=== PATIENT | female | born 1995 | race African-American/Black ===

== ENCOUNTER 2017-10-24 17:50 | Emergency (ER) | payer OTHER ==
--- NOTE | 2017-10-24 18:02 | PDOC ---
History of Present Illness - General Chief Complaint: Pain Stated Complaint: 11 WEEKS ABD PAIN Time Seen by Provider: 10/24/17 17:55 - History of Present Illness Initial Comments: 10/24/17 18:19 The patient is a 22 year old female 11 weeks who presents for evaluation of nausea, vomiting, headache, chest pain, and abdominal pain. The patient reports daily nausea and multiple episodes of non-bilious, non-bloody vomiting since 09/12/17 with inability to tolerate PO intake. The patient reports throbbing headache today along with intermittent crampy generalized abdominal pain and chest tightness. She initially presented to her certified appliance service technician physician who recommended that the patient present to the ER for further evaluation. The patient's LMP was 08/07/17 per report. The patient states that she currently does not have abdominal pain and her major complaint is nausea and vomiting. The patient otherwise denies fevers, chills, SOB, vaginal bleeding, vaginal discharge, or changes with urination or bowel movements. Past History - Past Medical History Allergies/Adverse Reactions: Allergies Allergy/AdvReac Type Severity Reaction Status Date / Time No Known Allergies Allergy Verified 10/24/17 18:03 Home Medications: Ambulatory Orders No Home Medications 0 dose .ROUTE UTDICT 11/29/12 Metoclopramide HCl [Reglan] 5 mg PO QID #20 tablet 10/24/17 - Reproductive History (#): 3 Para: 1 Therapeutic (s) & number: No Spontaneous : 1 - Suicide/Smoking/Psychosocial Hx Smoking Status: No Smoking History: Never smoked Number of Cigarettes Smoked Daily: 0 Review of Systems - Review of Systems Comments:: 10/24/17 18:23 Constitutional: No fevers, chills, fatigue, malaise HEENT: No Rhinorrhea, nasal congestion, visual changes Cardiovascular: Chest Tightness. Lightheadedness. No syncope, palpitations Respiratory: No Cough, SOB, Hemoptysis, Gastrointestinal: Abdominal pain, nausea, vomiting. No Constipation, Diarrhea, Melena Genitourinary: No Dysuria, Frequency, Urgency, Hesitancy, Hematuria, Flank pain , Vaginal bleeding, Vaginal discharge Musculoskeletal: No Myalgia, arthralgia Skin: No rashes, itching, bruising, pallor Neurologic: Headache. No Dizziness, Numbness, Weakness, or Tingling Psychiatric: No Hallucinations. No SI or HI *Physical Exam - Physical Exam Comments: 10/24/17 18:42 General Appearance: Nourished. No Apparent Distress HEENT: EOMI, JEAN CARLOS. No Pharyngeal Erythema, Tonsillar Exudate, Tonsillar Erythema Neck: No Cervical Lymphadenopathy Respiratory/Chest: Lungs Clear, Normal Breath Sounds. No Crackles, Rales, Rhonchi, Wheezing Cardiovascular: Regular Rhythm, Tachycardic. No Murmur, Gallops, Rubs Gastrointestinal/Abdominal: Normal Bowel Sounds, Soft. No Guarding, Rebound, Tenderness Musculoskeletal: No CVA Tenderness Extremity: Normal Capillary Refill Integumentary: Normal Color, Dry, Warm Neurologic: volunteer services supervisor II-XII NML intact, Fully Oriented, Alert, Normal Mood/Affect, Normal Response, Motor Strength 5/5. Normal Finger to Nose and Heel to [place] ED Treatment Course - LABORATORY CBC & Chemistry Diagram: 10/24/17 19:19 10/24/17 19:19 Medical Decision Making - Medical Decision Making 10/24/17 18:43 The patient is a 22 year old female 11 weeks who presents for evaluation of nausea, vomiting, headache, chest pain, and abdominal pain. Differential includes but is not limited to: Hyperemasis Gravidum, Gastroenteritis, Migraine Headache, Infectious, Metabolic Derangement. Given the patient's history, it is likely the patient's symptoms are due to hyperemasis gravidum. However we will obtain a cbc, cmp, troponin, ekg, beta- hcg, ua, urine culture, and transvaginal US to evaluate further for possible etiologies. We will treat in the meantime with iv fluids, reglan, and iv tylenol. We will continue to monitor and reassess. 10/24/17 19:32 Patient signed out to Dr. Saldivar pending lab results and US results and reassessment. *DC/Admit/Observation/Transfer Diagnosis at time of Disposition: Hyperemesis arising during - Discharge Dispostion Disposition: HOME Condition at time of disposition: Stable - Prescriptions Prescriptions: Metoclopramide HCl [Reglan] 5 mg PO QID #20 tablet - Referrals Referrals: Pam Mendoza [Primary Care Provider] - - Patient Instructions Printed Discharge Instructions: DI for Hyperemesis Gravidarum, DI for Morning Sickness Additional Instructions: You were seen here for your nausea and vomiting. Your labs were unremarkable and your HCG level in your blood was appropriate for your baby Your ultrasound showed the baby is appropriate age for 11-12 weeks . Please follow-up with your MILITARY PROFESSIONAL within the next week. If you develop any worsening abdominal pain, spotting or other bleeding, please return to the ER for further evaluation. - Post Discharge Activity
[2017-10-24] MEDS ORDERED: SODIUM CHLORIDE 1,000 ML IV STA (18:03)
[2017-10-24 18:06] VITALS: TEMP 98; BMI 17.6
[2017-10-24] MEDS ORDERED: METOCLOPRAMIDE HCL INJECTION 10 MG/2 ML VIAL IVPB ONE (18:08)
[2017-10-24] MEDS ORDERED: ACETAMINOPHEN 1000 MG/100 ML VIAL (NON FORMULARY) IVPB ONE (18:16)
--- NOTE | 2017-10-24 18:59 | PDOC ---
Attending Attestation - Resident Resident Name: LucíaBryanUmberto - ED Attending Attestation I have performed the following: I have examined & evaluated the patient, The case was reviewed & discussed with the resident, I agree w/resident's findings & plan, Exceptions are as noted - HPI HPI: 10/24/17 18:57 22 yo who is approx 11 weeks preg. LMP 08/07/17 C/O N,V Saw herob/data analytics specialist wo referred her to ER for IV fluids - Physicial Exam PE: 10/24/17 18:59 head ncat neck supple lungs cta b/l wnwd 22 yo p/w nausea and vomiting,no vag bleeding cvs [id number] abd no rebound,no guarding neuro axox3 - Medical Decision Making 10/24/17 19:02 plan chemistries to check electrolytes,IVF,antiemetics.pelvic US 10/24/17 22:47 labs reviewed, pt s' symptoms resolved after IVF,antiemetics. PELVIC US revealed sl iup 12 weeks ,good FHT 10/25/17 00:24
[2017-10-24] MEDS ORDERED: ACETAMINOPHEN INJECTION 100 ML IVPB ONE (19:32)
[2017-10-24] MEDS ORDERED: METOCLOPRAMIDE HCL INJECTION 10 MG/2 ML VIAL ONE (19:32)
--- NOTE | 2017-10-24 19:39 | PDOC ---
*Physical Exam - Vital Signs Last Vital Signs Temp Pulse Resp BP Pulse Ox 98 F 88 16 97/64 99 10/24/17 17:50 10/24/17 21:06 10/24/17 21:06 10/24/17 21:06 10/24/17 21:06 <PerezRadha Diamond - Last Filed: 10/24/17 22:35> - Vital Signs Last Vital Signs Temp Pulse Resp BP Pulse Ox 98 F 111 H 16 90/60 100 10/24/17 17:50 10/24/17 17:50 10/24/17 17:50 10/24/17 17:50 10/24/17 17:50 - Physical Exam Comments: 10/24/17 19:38 22yo F female 11 weeks with presenation of nausea, episodes of vomiting, and generalized abdominal pain without spotting. Labs pending. Pt receiving NS 1L bolus, ofirmev, and reglan for nausea. Pt currently has no other complaints at this time. Goal will be able to tolerate PO and will reassess as needed. <Korey Saldivar - Last Filed: 10/24/17 22:37> ED Treatment Course - LABORATORY CBC & Chemistry Diagram: 10/24/17 19:19 10/24/17 19:19 - ADDITIONAL ORDERS Additional order review: Laboratory Results 10/24/17 10/24/17 19:19 19:19 Sodium 136 Potassium 3.4 L Chloride 104 Carbon Dioxide 24 Anion Gap 8 BUN 9 Creatinine 0.4 L Creat Clearance w eGFR > 60 Random Glucose 79 Calcium 9.5 Total Bilirubin 0.9 AST 21 ALT 31 Alkaline Phosphatase 45 Creatine Kinase 80 Troponin I < 0.02 Total Protein 8.0 Albumin 4.4 Beta HCG, Quant 74369.4 10/24/17 19:19 RBC 4.72 D MCV 82.5 MCHC 33.4 RDW 14.7 MPV 8.0 Neutrophils % 76.9 D Lymphocytes % 16.5 D Monocytes % 6.0 Eosinophils % 0.1 D Basophils % 0.5 - Medications Given in the ED: ED Medications Discontinued Medications Generic Name Dose Route Start Last Admin Trade Name Freq PRN Reason Stop Dose Admin Acetaminophen 1,000 mg 10/24/17 18:16 10/24/17 19:44 Ofirmev Injection - IVPB 10/24/17 18:17 1,000 mg ONCE ONE Administration Sodium Chloride 1,000 mls @ 1,000 mls/hr 10/24/17 18:03 10/24/17 19:30 Normal Saline - IV 10/24/17 19:02 1,000 mls/hr ASDIR STA Administration Metoclopramide HCl 10 mg 10/24/17 18:08 10/24/17 19:45 Reglan Injection - IVPB 10/24/17 18:09 10 mg ONCE ONE Administration <Radha Todd - Last Filed: 10/24/17 22:35> - LABORATORY CBC & Chemistry Diagram: 10/24/17 19:19 10/24/17 19:19 <Korey Saldivar - Last Filed: 10/24/17 22:37> Medical Decision Making - Medical Decision Making 10/24/17 19:55 CBC unremarkable currently;CMP pending 10/24/17 20:25 On reassessment pt is sleeping without any vomiting. Denies any new complaints. CMP with slight hypokalemia at 3.4; cardiac profile unremarkable --Will replete with next fluids 10/24/17 22:17 Transvaginal US showing appropriate age PO trial with water and if tolerated can be discharged home 10/24/17 22:24 Tolerating water; can be discharged with close follow-up <Korey Saldivar - Last Filed: 10/24/17 22:37> *DC/Admit/Observation/Transfer <Radha Todd - Last Filed: 10/24/17 22:35> - Discharge Dispostion Admit: No <Korey Saldivar - Last Filed: 10/24/17 22:37> Diagnosis at time of Disposition: Hyperemesis arising during - Discharge Dispostion Disposition: HOME Condition at time of disposition: Stable - Prescriptions Prescriptions: Metoclopramide HCl [Reglan] 5 mg PO QID #20 tablet - Referrals Referrals: Pam Mendoza [Primary Care Provider] - - Patient Instructions Printed Discharge Instructions: DI for Hyperemesis Gravidarum, DI for Morning Sickness Additional Instructions: You were seen here for your nausea and vomiting. Your labs were unremarkable and your HCG level in your blood was appropriate for your baby Your ultrasound showed the baby is appropriate age for 11-12 weeks . Please follow-up with your INTELLIGENCE RESEARCH SPECIALIST within the next week. If you develop any worsening abdominal pain, spotting or other bleeding, please return to the ER for further evaluation. - Post Discharge Activity
[2017-10-24 19:43] LABS: BASO % 0.5 % (0-2.0); EOS % 0.1 % (0-4.5); LYMPH % 16.5 % (8-40); MCH 27.6 pg (25.7-33.7); MCHC 33.4 g/dl (32.0-36.0); MEAN CELL VOLUME 82.5 fl (80-96); NEUT % 76.9 % (42.8-82.8); PLATELET COUNT 231 K/MM3 (134-434); RBC 4.72 M/mm3 (3.60-5.2); RDW 14.7 % (11.6-15.6)
[2017-10-24 20:13] LABS: ALBUMIN 4.4 g/dl (3.4-5.0); ANION GAP 8 (8-16); BILIRUBIN,TOTAL 0.9 mg/dL (0.2-1.0); BLOOD UREA NITROGEN 9 mg/dL (7-18); CALCIUM 9.5 mg/dL (8.5-10.1); CHLORIDE 104 mmol/L (98-107); CO2 24 mmol/L (21-32); CREATININE 0.4 mg/dL (0.55-1.02); GLUCOSE,RANDOM 79 mg/dL (74-106); POTASSIUM 3.4 mmol/L (3.5-5.1); SGOT/AST 21 U/L (15-37); SGPT/ALT 31 U/L (12-78); SODIUM 136 mmol/L (136-145)
[2017-10-24 20:15] LABS: ALK PHOS 45 U/L (45-117)
[2017-10-24 21:08] VITALS: BP 97/64; PULSE 88
--- NOTE | 2017-10-25 09:54 | EKG ---
Test Reason : Blood Pressure : / mmHG Vent. Rate : 112 BPM Atrial Rate : 112 BPM P-R Int : 126 ms QRS Dur : 090 ms QT Int : 342 ms P-R-T Axes : 074 090 -48 degrees QTc Int : 466 ms SINUS TACHYCARDIA RIGHTWARD AXIS ABNORMAL ECG NO PREVIOUS ECGS AVAILABLE Confirmed by SANTHOSH YAO, PAUL ([id number]) on 10/25/2017 9:53:48 AM Referred By: Confirmed By:PAUL TREVIZO MD
== END 2017-10-24 22:48 | disposition home or self-care (01) ==
LOC: JER 17:50
PROC: 3E033NZ Introduction of Analgesics, Hypnotics, Sedatives into Peripheral Vein, Percutaneous Approach (ICD-10-PCS; principal; 2017-10-24)
PROC: 3E033GC Introduction of Other Therapeutic Substance into Peripheral Vein, Percutaneous Approach (ICD-10-PCS; 2017-10-24)
PROC: 3E0337Z Introduction of Electrolytic and Water Balance Substance into Peripheral Vein, Percutaneous Approach (ICD-10-PCS; 2017-10-24)
DX: O26.891 Other specified pregnancy related conditions, first trimester (principal); Z3A.11 11 weeks gestation of pregnancy; R11.10 Vomiting, unspecified
CPT/HCPCS: 36415; 76817-TC; 80053; 82550; 84484; 84702; 85025; 93005; 93010; 96361; 96374; 96375; 99283-25; J0131; J7030

== ENCOUNTER 2018-05-12 05:25 | Inpatient (IN) | payer OTHER ==
[2018-05-12] MEDS ORDERED: ELECTROLYTE-148 SOLN 500 ML IV ONE (06:18)
[2018-05-12] MEDS ORDERED: CITRIC ACID/SODIUM CITRATE 30 ML UNIT-DOSE CUP PO ONE (06:18)
--- NOTE | 2018-05-12 06:26 | HP ---
Past Medical History - Primary Care Physician PCP:: Juana Self - Admission Chief Complaint: 22 yrs 40.4 weeks, previous c/section ,onset LP since 9.00PM 05/11/18, pt requests for Repeat c/section History of Present Illness: pnc at [address] [place] [address]. 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 Weeks Gestation by Dates: 40.4 ...EDC by Dates: 05/08/18 ...EDC by Sono: 05/08/18 Heme/Onc: No: Anemia, Sickle Cell Disease, Sickle Cell Trait Infectious Disease: No: AIDS, C-Diff, Herpes Zoster, HIV, MRSA, STD's, Tuberculosis, VREF, Other Psych: No: Addictions, Anxiety, Bipolar, Depression, Panic, Psychosis, Schizophrenia, Other Endocrine: No: Diabetes Mellitus, Hyperthyroidism, Hypothyroidism - Past Surgical History Past Surgical History: Yes: (12/30/2010 [facility]) Hx Myomectomy: No Hx Transabdominal Cerclage: No - Smoking History Smoking history: Never smoked Have you smoked in the past 12 months: No Aproximately how many cigarettes per day: 0 - Alcohol/Substance Use Hx Alcohol Use: No History of Substance Use: reports: None Home Medications - Allergies Allergies/Adverse Reactions: Allergies Allergy/AdvReac Type Severity Reaction Status Date / Time No Known Allergies Allergy Verified 05/12/18 06:05 - Home Medications Home Medications: Ambulatory Orders Ferrous Sulfate [Feosol] 325 mg PO DAILY 05/12/18 Vit 108/Iron/Folic AC [ One Tablet] 1 each PO DAILY 05/12/18 Physical Exam - Maternity Vital Signs: Vital Signs Temperature 97.8 F 05/12/18 06:08 Pulse Rate 81 05/12/18 06:08 Respiratory Rate 20 05/12/18 06:08 Blood Pressure 134/75 05/12/18 06:08 O2 Sat by Pulse Oximetry (%) Selected Entries 05/12/18 06:39 Weight 172 lb Constitutional: Yes: Well Nourished, Moderate Distress Eyes: Yes: WNL HENT: Yes: WNL, Normocephalic Neck: Yes: WNL Cardiovascular: Yes: WNL, Regular Rate and Rhythm Lungs: Clear to auscultation Breast(s): Yes: WNL. No: Mass - Abdominal Exam/OB Fundal Height: 40 Number of Fetuses: Single Presentation: Vertex Contractions: Yes Regularity: Irregular Intensity: Mod/Strong (3-5 min) Monitor Mode: External Heart Rate (range): 130 Heart Rate Location: [facility] Category: I Accelerations: Uniform Decelerations: None - Vaginal Exam/OB Vaginal Bleediing: Bloody Show Speculum Exam: No Dilatation (cm): FT Effacement (%): 80 Amniotic Membrane Status: Intact Presentation: Vertex/Position (cx is post erior) Station: -3 - Physical Exam Musculoskeletal: Yes: WNL Extremities: Yes: WNL. No: Calf Tenderness Edema: LLE: 1+, RLE: 1+ Integumentary: Yes: Incision (old pfannensteil scar), Tattoos Deep Tendon Reflex Grade: Normal +2 ...Motor Strength: WNL Psychiatric: Yes: WNL - Labs Lab Results: Laboratory Tests 05/12/18 06:00 PT with INR 11.20 INR 0.95 Laboratory Tests 05/12/18 05/12/18 05/12/18 06:00 06:00 06:00 WBC 7.7 Hgb 13.2 Hct 41.8 Plt Count 147 D PT with INR 11.20 INR 0.95 PTT (Actin FS) 28.4 Sodium 138 Potassium 3.9 Chloride 107 Carbon Dioxide 21 BUN 7 Creatinine 0.4 L Random Glucose 84 Problem List - Problems (1) Post term over 40 weeks Code(s): O48.0 - POST-TERM (2) Previous section Code(s): Z98.891 - HISTORY OF UTERINE SCAR FROM PREVIOUS SURGERY (3) Labor established Code(s): GAO8056 - Assessment/Plan 22 yrs , previous c/section, in early labor, postterm pregn 40.4 weeks , refuses , requests for Repeat c/section Plan delivery by repeat LFTC/section
[2018-05-12] MEDS ORDERED: ELECTROLYTE-148 SOLN 1,000 ML IV SCH (06:30)
[2018-05-12] MEDS ORDERED: ONDANSETRON 4 MG/2 ML VIAL ONE (06:33)
[2018-05-12] MEDS ORDERED: SODIUM CHLORIDE 0.9% P/F 10 ML VIAL IJ ONE (06:33)
[2018-05-12] MEDS ORDERED: ceFAZolin SODIUM 1 GM VIAL ONE ×2 (06:33→14:23)
[2018-05-12 06:45] VITALS: BMI 33.5
[2018-05-12 06:50] LABS: INR 0.95 (0.83-1.09); PROTHROMBIN TIME (PATIENT) 11.2 SEC (9.7-13.0)
[2018-05-12 06:52] LABS: ACTIVATED PTT 28.4 SECONDS (25.2-36.5); ANION GAP 10 MMOL/L (8-16); BLOOD UREA NITROGEN 7 mg/dL (7-18); CALCIUM 8.8 mg/dL (8.5-10.1); CHLORIDE 107 mmol/L (98-107); CO2 21 mmol/L (21-32); CREATININE 0.4 mg/dL (0.55-1.3); GLUCOSE,RANDOM 84 mg/dL (74-106); POTASSIUM 3.9 mmol/L (3.5-5.1); SODIUM 138 mmol/L (136-145)
[2018-05-12] MEDS ORDERED: METOCLOPRAMIDE HCL INJECTION 10 MG/2 ML VIAL ONE (06:52)
[2018-05-12] MEDS ORDERED: morphine SULFATE/Preservative Free 0.5 MG/ML (1cc Syringe) ONE (06:57)
[2018-05-12] MEDS ORDERED: OXYTOCIN 20 UNITS in 0.9% NS 20 UNIT/1,000 ML INFUS.BAG IV ONE ×2 (07:07→09:17)
[2018-05-12 07:18] LABS: BASO % 0.4 % (0-2.0); EOS % 0.8 % (0-4.5); HEMATOCRIT 41.8 % (32.4-45.2); HEMOGLOBIN 13.2 GM/dL (10.7-15.3); LYMPH % 22.6 % (8-40); MCH 26.3 pg (25.7-33.7); MCHC 31.7 g/dl (32.0-36.0); MEAN PLT VOLUME 9.3 fl (7.5-11.1); MONO % 8.6 % (3.8-10.2); NEUT % 67.6 % (42.8-82.8); PLATELET COUNT 147 K/MM3 (134-434); RBC 5.03 M/mm3 (3.60-5.2); RDW 13.9 % (11.6-15.6); WHITE BLOOD COUNT 7.7 K/mm3 (4.0-10.0)
[2018-05-12] MEDS ORDERED: morphine SULFATE/Preservative Free 0.5 MG/ML (1cc Syringe) SPIN ONE (08:11)
[2018-05-12] MEDS ORDERED: ONDANSETRON 4 MG/2 ML VIAL IVPUSH PRN (08:11)
[2018-05-12] MEDS ORDERED: ACETAMINOPHEN 325 MG TABLET (FP) PO PRN (08:11)
[2018-05-12 08:22] LABS: ARTERIAL BLD GAS O2 SATURATION 5.4 % (90-98.9); ARTERIAL BLOOD GAS BASE EXCESS -1.8 meq/l (-2-2); ARTERIAL BLOOD GAS PCO2 66.6 mmHg (35-45); ARTERIAL BLOOD GAS PO2 9.9 mmHg (80-100); ARTERIAL BLOOD GAS pH 7.24 (7.35-7.45)
[2018-05-12 08:24] LABS: VENOUS PH 7.29 (7.32-7.42); VENOUS PO2 22.3 mmHg (28-48)
--- NOTE | 2018-05-12 08:47 | PN ---
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
[2018-05-12] MEDS ORDERED: SENNOSIDES/DOCUSATE COMBO (SENNA PLUS) TABLET (UD) PO PRN (08:49)
[2018-05-12] MEDS ORDERED: METHYLERGONOVINE MALEATE 0.2 MG/1 ML AMP IM PRN (08:49)
[2018-05-12] MEDS: OXYTOCIN 20 UNITS in 0.9% NS 20 UNIT/1,000 ML INFUS.BAG IV SCH ×2 (09:19→18:16)
--- NOTE | 2018-05-12 09:34 | OP ---
DATE OF OPERATION: 05/12/2018 PREOPERATIVE DIAGNOSIS: At 40.4 weeks, previous section in labor, request for repeat section. OPERATION: Repeat low transverse section. SURGEON: Juana Self MD ASST SURGEON Drew CEBALLOS ANESTHESIA: Dr. Burgess, spinal. MESSENGER FLOORPERSON Dr Jasmin Riojas FINDINGS: This is a 22-year-old 3, para 1-0-1-1 who had onset of labor since 9 p.m. on May 11. She was fingertip dilated, posterior, 80% effaced, -3 station woodrow i 3- 5 minutes irregularity moderate contractions, but she refuses and requests for repeat section. DESCRIPTION OF PROCEDURE: Abdominal prep was done, and Blackmon catheter was placed. SCDs were applied. She was taken to the operating room table. Spinal anesthesia was given. She was placed in supine position. Pfannenstiel incision was made through previous scar in the skin and subcutaneous tissue. Scar tissue anterior rectus sheath was incised transversely. Bleeding points were clamped and cauterized. Rectus muscle was from the rectus sheath. Then peritoneal peritoneum was opened vertically. The lower flap by the peritoneum was incised transversely. Lower uterine segment was isolated and lower uterine segment was incised transversely. Amniotic fluid was clear. Baby was delivered at 7:53 a.m. Baby boy from LOT position. Cord around the neck, which was untangled. Baby's cord was clamped, cut. Immediate oral and nasal suction was done. Baby's weight is 8 pounds 3 ounces. score 9, 9. Dr. Beulah Castellanos, ethics instructor, was present in the room. Cord blood was collected. Cord blood gases were also collected. Placenta was removed completely with the membranes. Uterine cavity was cleaned, and the uterine incision was closed with 2 layers. First layer was a continuous locking with a Biosyn single suture. Second layer was a continuous intermittently locking with a Biosyn single suture. Hemostasis was verified. Bladder peritoneum was closed with a Biosyn single suture. There were omental adhesions between the right side of the abdominal wall and the mentum, which were clamped, cut, cauterized, and ligated with 0 Vicryl. Irrigation was done. Sponge, instrument, and needle count was correct. Both the tubes and ovaries were normal. Closure of the abdomen was done. Parietal peritoneum was closed with an 0 Vicryl suture. Then muscles were approximated together with interrupted sutures under the rectus sheath. Hemostasis was checked, and anterior rectus sheath was closed with Vicryl 0 continuous suture. Hemostasis was verified in the subcutaneous tissues. Skin was mobilized from underneath the scar. Subcutaneous tissue was approximated with interrupted Biosyn single suture then the skin was approximated with mick. Pressure dressing was given. Blood clots were removed from the vagina. The patient tolerated the procedure well. She was transferred to the recovery room in stable condition. Estimated blood loss was 600 mL. Urine output was 100 mL intraoperatively. She received 1 g of IV Ancef prior to the incision. Jean Paul [id number] MTDD
[2018-05-12] MEDS: IBUPROFEN 800 MG/8 ML IJ IVPB PRN ×2 (11:03→20:51)
[2018-05-12] MEDS ORDERED: DEXTROSE 5%-WATER - 50 ML IVPB ONE (14:23)
[2018-05-12] MEDS: CEFAZOLIN 1 GM in DEXTROSE 5%-WATER - 50 ML IVPB SCH ×2 (14:31→23:15)
[2018-05-13] MEDS ORDERED: DEXTROSE 5%-WATER - 50 ML IVPB ONE ×2 (00:08→05:19)
[2018-05-13] MEDS ORDERED: ceFAZolin SODIUM 1 GM VIAL ONE ×2 (00:08→05:19)
[2018-05-13] MEDS: ACETAMINOPHEN 325 MG TABLET (FP) PO PRN ×3 (03:09→23:54)
[2018-05-13] MEDS: SIMETHICONE 80 MG TAB.CHEW (FP) PO PRN ×4 (03:09→23:55)
[2018-05-13] MEDS: IBUPROFEN 600 MG TABLET (FP) PO PRN ×4 (03:10→23:54)
[2018-05-13] MEDS ORDERED: oxyCODONE HCL 5 MG TABLET PO PRN (06:00)
[2018-05-13] MEDS: CEFAZOLIN 1 GM in DEXTROSE 5%-WATER - 50 ML IVPB SCH (06:02)
[2018-05-13] MEDS: oxyCODONE HCL 5 MG TABLET PO PRN ×3 (08:17→18:21)
[2018-05-13 08:18] LABS: BASO % 0.4 % (0-2.0); EOS % 0.7 % (0-4.5); HEMATOCRIT 36.7 % (32.4-45.2); HEMOGLOBIN 11.9 GM/dL (10.7-15.3); LYMPH % 16.1 % (8-40); MCH 27.3 pg (25.7-33.7); MCHC 32.4 g/dl (32.0-36.0); MEAN CELL VOLUME 84.4 fl (80-96); MEAN PLT VOLUME 9.7 fl (7.5-11.1); MONO % 7.7 % (3.8-10.2); NEUT % 75.1 % (42.8-82.8); PLATELET COUNT 136 K/MM3 (134-434); RBC 4.35 M/mm3 (3.60-5.2); RDW 13.7 % (11.6-15.6); WHITE BLOOD COUNT 8.4 K/mm3 (4.0-10.0)
[2018-05-13] MEDS ORDERED: BISACODYL 10 MG SUPP.RECT RC PRN (08:49)
--- NOTE | 2018-05-13 08:52 | PN ---
Progress Note (short form) - Note Progress Note: ANESTHESIOLOGY POST-OP CHECK 22F s/p repeat under spinal anesthesia POD #1. No acute complaints. Denies N/V, backache, headache. Pain 7/10 & tolerable, ambulating, tolerating PO. Vital Signs Temperature 98 F 05/13/18 06:00 Pulse Rate 80 05/13/18 06:00 Respiratory Rate 18 05/13/18 06:00 Blood Pressure 106/54 L 05/13/18 06:00 O2 Sat by Pulse Oximetry (%) 100 05/12/18 21:00 Active Medications Acetaminophen (Tylenol -) 650 mg PO Q4H PRN PRN Reason: PAIN LEVEL 1-5 Last Admin: 05/13/18 03:09 Dose: 650 mg Bisacodyl (Dulcolax Suppository -) 10 mg RC PRN PRN PRN Reason: CONSTIPATION Diphenhydramine HCl (Benadryl Injection -) 25 mg IVPUSH Q4H PRN PRN Reason: Pruritis Enoxaparin Sodium (Lovenox -) 40 mg SQ DAILY [facility] Ferrous Sulfate (Feosol -) 325 mg PO BID [facility] Parenteral Electrolytes (Plasma-Lyte 148 -) 1,000 mls @ 125 mls/hr IV ASDIR [facility] Cefazolin Sodium 1 gm/ (Dextrose) 50 mls @ 100 mls/hr IVPB Q8H [facility] Stop: 05/13/18 14:59 Last Admin: 05/13/18 06:02 Dose: 100 mls/hr Oxytocin/Sodium Chloride (Normal Saline+20 Units Oxytocin -) 20 unit in 1,000 mls @ 125 mls/hr IV ASDIR [facility] Last Admin: 05/12/18 18:16 Dose: 125 mls/hr Ibuprofen (Motrin -) 600 mg PO Q4H PRN PRN Reason: PAIN LEVEL 1 - 3 Last Admin: 05/13/18 08:18 Dose: 600 mg Ibuprofen (Caldolor Injection -) 800 mg IVPB Q8H PRN PRN Reason: PAIN LEVEL 1-5 Last Admin: 05/12/18 20:51 Dose: 800 mg Methylergonovine Maleate (Methergine Injection -) 0.2 mg IM Q4H PRN PRN Reason: Excessive Bleeding (L&D) Ondansetron HCl (Zofran Injection) 4 mg IVPUSH Q4H PRN PRN Reason: NAUSEA Oxycodone HCl (Roxicodone -) 5 mg PO Q4H PRN PRN Reason: PAIN LEVEL 4 - 6 Last Admin: 05/13/18 08:17 Dose: 5 mg Oxycodone HCl (Roxicodone -) 10 mg PO Q4H PRN PRN Reason: PAIN LEVEL 7 - 10 Multivit/Folic Acid/Iron ( Vitamins (Sjr) -) 1 tab PO DAILY [facility] Senna/Docusate Sodium (Pericolace -) 2 tablet PO HS PRN PRN Reason: CONSTIPATION Simethicone (Mylicon -) 80 mg PO Q4H PRN PRN Reason: GAS Last Admin: 05/13/18 08:19 Dose: 80 mg Gen: Awake, alert No apparent anesthesia complications. Pain controlled. Continue management as per primary team.
[2018-05-13] MEDS: ENOXAPARIN NA (PORCINE) 40 MG/0.4 ML DISP.SYRIN SQ SCH (09:28)
[2018-05-13] MEDS: PRENATAL VITAMINS W/ FOLIC ACID TABLET (FP) PO SCH (10:00)
--- NOTE | 2018-05-13 10:10 | PN ---
Post Progress Note - Subjective Subjective: c/o pain on rt side of incision max scale 5/10 voided after rodriguez was taken out Post Day: 1 Type of Delivery: Repeat C/S Vital Signs: Vital Signs Temperature 98.3 F 05/13/18 07:40 Pulse Rate 84 05/13/18 07:40 Respiratory Rate 18 05/13/18 08:00 Blood Pressure 137/75 05/13/18 07:40 O2 Sat by Pulse Oximetry (%) 100 05/12/18 21:00 Breast Exam: Yes: Soft, Other (BF ). No: Engorged Uterus: Yes: Fundus Firm, Fundus below umbilicus, Non-tender Incision: Yes: Dressing dry and intact. No: Redness, Oozing Abdomen/GI: Yes: Abdomen soft (bs active ), Passing flatus, Tolerating PO (diet) . No: Abdominal Distention Lochia: Yes: Rubra Lochia, amount: Moderate Extremities: Yes: Calves non-tender Perineum: Yes: Intact Activity: Ambulating - Labs Labs: CBC WBC 8.4 K/mm3 (4.0-10.0) 05/13/18 07:20 RBC 4.35 M/mm3 (3.60-5.2) 05/13/18 07:20 Hgb 11.9 GM/dL (10.7-15.3) 05/13/18 07:20 Hct 36.7 % (32.4-45.2) 05/13/18 07:20 MCV 84.4 fl (80-96) 05/13/18 07:20 MCH 27.3 pg (25.7-33.7) 05/13/18 07:20 MCHC 32.4 g/dl (32.0-36.0) 05/13/18 07:20 RDW 13.7 % (11.6-15.6) 05/13/18 07:20 Plt Count 136 K/MM3 (134-434) 05/13/18 07:20 MPV 9.7 fl (7.5-11.1) 05/13/18 07:20 Absolute Neuts (auto) 6.3 K/mm3 (1.5-8.0) 05/13/18 07:20 Neutrophils % 75.1 % (42.8-82.8) 05/13/18 07:20 Lymphocytes % 16.1 % (8-40) D 05/13/18 07:20 Monocytes % 7.7 % (3.8-10.2) 05/13/18 07:20 Eosinophils % 0.7 % (0-4.5) 05/13/18 07:20 Basophils % 0.4 % (0-2.0) 05/13/18 07:20 Nucleated RBC % 0 % (0-0) 05/13/18 07:20 Other Findings, Remarks: RS cta i/o adequate Problem List - Problems (1) Post term over 40 weeks Code(s): O48.0 - POST-TERM (2) Previous section Code(s): Z98.891 - HISTORY OF UTERINE SCAR FROM PREVIOUS SURGERY (3) Labor established Code(s): NBU4104 - (4) delivery delivered Code(s): O82 - ENCOUNTER FOR DELIVERY WITHOUT INDICATION (5) Encounter for visit Code(s): Z39.2 - ENCOUNTER FOR ROUTINE FOLLOW-UP Assessment/Plan stable plan ct po care
[2018-05-13] MEDS: FERROUS SO4 325 MG TABLET (FP) PO SCH (21:53)
[2018-05-14] MEDS: SIMETHICONE 80 MG TAB.CHEW (FP) PO PRN ×3 (06:14→19:45)
[2018-05-14] MEDS: ACETAMINOPHEN 325 MG TABLET (FP) PO PRN ×3 (06:14→19:46)
[2018-05-14] MEDS: IBUPROFEN 600 MG TABLET (FP) PO PRN (06:23)
--- NOTE | 2018-05-14 07:20 | PN ---
Post Progress Note - Subjective Subjective: c/o pain , t max 6/10 voiding without difficulty Post Day: 2 Type of Delivery: Repeat C/S Vital Signs: Vital Signs Temperature 98.4 F 05/13/18 22:00 Pulse Rate 80 05/13/18 22:00 Respiratory Rate 18 05/13/18 22:00 Blood Pressure 132/66 05/13/18 22:00 O2 Sat by Pulse Oximetry (%) 100 05/12/18 21:00 Breast Exam: Yes: Soft, Other (BF ). No: Engorged Uterus: Yes: Fundus Firm, Fundus below umbilicus, Non-tender Incision: Yes: [place] intact. No: Redness, Oozing Abdomen/GI: Yes: Abdomen soft, Passing flatus, Tolerating PO (diet ). No: Abdominal Distention, Tender Lochia: Yes: Rubra Lochia, amount: Moderate Extremities: Yes: Calves non-tender Perineum: Yes: Intact Activity: Ambulating - Labs Labs: CBC WBC 8.4 K/mm3 (4.0-10.0) 05/13/18 07:20 RBC 4.35 M/mm3 (3.60-5.2) 05/13/18 07:20 Hgb 11.9 GM/dL (10.7-15.3) 05/13/18 07:20 Hct 36.7 % (32.4-45.2) 05/13/18 07:20 MCV 84.4 fl (80-96) 05/13/18 07:20 MCH 27.3 pg (25.7-33.7) 05/13/18 07:20 MCHC 32.4 g/dl (32.0-36.0) 05/13/18 07:20 RDW 13.7 % (11.6-15.6) 05/13/18 07:20 Plt Count 136 K/MM3 (134-434) 05/13/18 07:20 MPV 9.7 fl (7.5-11.1) 05/13/18 07:20 Absolute Neuts (auto) 6.3 K/mm3 (1.5-8.0) 05/13/18 07:20 Neutrophils % 75.1 % (42.8-82.8) 05/13/18 07:20 Lymphocytes % 16.1 % (8-40) D 05/13/18 07:20 Monocytes % 7.7 % (3.8-10.2) 05/13/18 07:20 Eosinophils % 0.7 % (0-4.5) 05/13/18 07:20 Basophils % 0.4 % (0-2.0) 05/13/18 07:20 Nucleated RBC % 0 % (0-0) 05/13/18 07:20 Problem List - Problems (1) Post term over 40 weeks Code(s): O48.0 - POST-TERM (2) Previous section Code(s): Z98.891 - HISTORY OF UTERINE SCAR FROM PREVIOUS SURGERY (3) Labor established Code(s): ULE5287 - (4) delivery delivered Code(s): O82 - ENCOUNTER FOR DELIVERY WITHOUT INDICATION (5) Encounter for visit Code(s): Z39.2 - ENCOUNTER FOR ROUTINE FOLLOW-UP Assessment/Plan stable. encourage anbulation, po fluids , deep breathing
[2018-05-14] MEDS: FERROUS SO4 325 MG TABLET (FP) PO SCH ×2 (09:17→21:45)
[2018-05-14] MEDS: ENOXAPARIN NA (PORCINE) 40 MG/0.4 ML DISP.SYRIN SQ SCH (09:18)
[2018-05-14] MEDS: PRENATAL VITAMINS W/ FOLIC ACID TABLET (FP) PO SCH (09:18)
[2018-05-14] MEDS: oxyCODONE HCL 5 MG TABLET PO PRN ×3 (15:28→21:50)
[2018-05-15] MEDS: SIMETHICONE 80 MG TAB.CHEW (FP) PO PRN ×3 (07:31→21:00)
[2018-05-15] MEDS: oxyCODONE HCL 5 MG TABLET PO PRN ×3 (07:31→21:00)
[2018-05-15] MEDS: ACETAMINOPHEN 325 MG TABLET (FP) PO PRN ×3 (07:32→21:01)
[2018-05-15 08:08] LABS: BASO % 0.3 % (0-2.0); EOS % 1.2 % (0-4.5); HEMATOCRIT 30.4 % (32.4-45.2); HEMOGLOBIN 9.6 GM/dL (10.7-15.3); LYMPH % 15.8 % (8-40); MCH 26.6 pg (25.7-33.7); MCHC 31.7 g/dl (32.0-36.0); MEAN PLT VOLUME 8.9 fl (7.5-11.1); MONO % 5.9 % (3.8-10.2); NEUT % 76.8 % (42.8-82.8); PLATELET COUNT 145 K/MM3 (134-434); RBC 3.62 M/mm3 (3.60-5.2); RDW 13.7 % (11.6-15.6)
[2018-05-15] MEDS: PRENATAL VITAMINS W/ FOLIC ACID TABLET (FP) PO SCH (09:03)
[2018-05-15] MEDS: FERROUS SO4 325 MG TABLET (FP) PO SCH ×2 (09:03→21:08)
[2018-05-15] MEDS: ENOXAPARIN NA (PORCINE) 40 MG/0.4 ML DISP.SYRIN SQ SCH (09:03)
[2018-05-16] MEDS: ACETAMINOPHEN 325 MG TABLET (FP) PO PRN (01:47)
[2018-05-16] MEDS: oxyCODONE HCL 5 MG TABLET PO PRN (01:47)
[2018-05-16] MEDS: SIMETHICONE 80 MG TAB.CHEW (FP) PO PRN (01:47)
--- NOTE | 2018-05-16 07:55 | DS ---
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 No: Distention Renal/: Yes: WNL, Other (voiding without difficulty). No: CVA Tenderness - Left, CVA Tenderness - Right ....Post : Yes: Uterus firm, Slight lochia rubra (perineum intact) Breast(s): Yes: WNL (BF , not engorged) Musculoskeletal: Yes: WNL Extremities: Yes: WNL. No: Calf Tenderness Edema: LLE: 1+, RLE: 1+ Integumentary: Yes: Tattoos Wound/Incision: Yes: Clean/Dry, Well Approximated (left side of incsion rt side of incision , due to scar tissuse , skin not well approximated, , bought together with steri strips), Steri Strips, Open to air, [place] Removed. No: Draining, Reddened Neurological: Yes: WNL, Alert, Oriented ...Motor Strength: WNL Psychiatric: Yes: WNL, Alert, Oriented Labs: CBC, BMP 05/15/18 07:00 05/12/18 06:00 Delivery - Delivery Section: Repeat, Low Flap Transverse (40.4 weeks , previous c/section , in labor , requests repeat c/s) Type of Anesthesia: Spinal Episiotomy/Laceration: None EBL (cc): 600 (intraiop urine 100 ml don color ) Delivery, Single - Stages of Labor Date 1st Stage Initiatied: 05/11/18 Time 1st Stage Initiated: 21:00 Date of Delivery: 05/12/18 Time of Delivery: 07:53 Time Placenta Delivered: 07:54 Placenta: Yes: Expressed, Uterine Exploration - 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 Name: Beulah Castellanos Gender: Male Weight: 8 lb 3 oz Position: Left, OT (cord around neck) Total Hours ROM (Hrs/Mins): 0hrs 2min - 1 Minute Total Score: 9 5 Minutes Total Score: 9 - Feeding Plan Initial Plan: Elected not to breastfeed exclusively throughout hospitalization Remarks - Remarks Remarks: 22 yrs , , 40.4 weeks previous c/section , in labor , gbs neg , pt requests for repeat c/s , refused pnc at [address] [place] [id number] Intrap[ course uneventful 1 gm iv Ancef intraop given post op course uneventful anemia counselled incision care instructed discharge today Discharge Summary Reason For Visit: LABOR Current Active Problems delivery delivered (Acute) Encounter for visit (Acute) Labor established (Acute) Post term over 40 weeks (Acute) Previous section (Acute) Condition: Stable - Instructions Diet, Activity, Other Instructions: Post Instructions DIET: Continue good diet high in protein, calcium, and iron rich foods. Drink at least eight (8) glasses of water daily in addition to other fluids. ct Regular diet MEDICATIONS: Continue vitamins and iron as previously directed. Motrin and Tylenol may be taken for minor discomfort. ACTIVITY: Mild to moderate exercise may be started in two (2) weeks. Take frequent rest periods. Resume normal activity after six (6) week check up. WOUND CARE OF OPERATIVE SITE: Continue use of perineal bottle until vaginal discharge stops. Keep area clean. Shower daily. Keep abdominal wound dry. Report any drainage or redness to physician. Tub baths, tampons and douches are not permitted for [address] Breast feeding & or Bottle feeding BREAST CARE: (For those that are not breast feeding): If engorgement occurs: Wear tight fitting bra. Take Tylenol or Motrin for pain. Apply cold packs (ice in bags to each breast ) FAMILY PLANNING: There are many control alternatives to pursue and they should be discussed at your first office visit. You may resume sexual activity after your six (6) week check up. (Remember, breast feeding is not a contraceptive) NEXT PHYSICIAN APPOINTMENT: Be certain to call for a one (1) week appointment, unless otherwise directed. Call Clinic or got to Emergency Dept if you have any of the following: Heavy vaginal bleeding Painful urination Leg pain Unusual odor noted to vaginal bleeding High fever Red streaking noted on breast Referrals: Juana Self MD [Staff Physician] - Disposition: HOME - Home Medications Comprehensive Discharge Medication List: Ambulatory Orders Ferrous Sulfate [Feosol] 325 mg PO DAILY 05/12/18 Vit 108/Iron/Folic AC [ One Tablet] 1 each PO DAILY 05/12/18 Acetaminophen [Tylenol .Regular Strength -] 500 mg PO Q4H PRN #30 tablet Ferrous Sulfate [Feosol] 325 mg PO BID #60 tab 05/15/18 Ibuprofen [Motrin -] 600 mg PO Q4H PRN #30 tablet 05/15/18 Vitamins (Sjr) - 1 tab PO DAILY #30 tablet 05/15/18 Sennosides/Docusate Sodium [Pericolace -] 2 tablet PO HS PRN #60 tablet
[2018-05-16] MEDS: PRENATAL VITAMINS W/ FOLIC ACID TABLET (FP) PO SCH (09:16)
[2018-05-16] MEDS: FERROUS SO4 325 MG TABLET (FP) PO SCH (09:16)
[2018-05-16] MEDS: ENOXAPARIN NA (PORCINE) 40 MG/0.4 ML DISP.SYRIN SQ SCH (09:19)
[2018-05-16 10:43] VITALS: BP 112/62; PULSE 70; TEMP 98.3
--- NOTE | 2018-05-21 14:58 | PATH ---
Surgical Pathology Report Patient Name: BERTO ADAMS [facility]. Rec. #: [id number] /Age/Gender: 1995 (Age: 22) / F Account: [id number] Location: [facility] OBS/CLAIMS COUNSEL Taken: 05/12/2018 Received: 05/14/2018 Reported: 05/21/2018 Physicians: Juana Self M.D. Specimen(s) Received PLACENTA Clinical History , 40.4 gestational weeks, previous C/S in labor Final Diagnosis PLACENTA, SECTION: 450 G THIRD TRIMESTER PLACENTA WITH TRIVASCULAR UMBILICAL CORD, FOCAL INTRAPARENCHYMAL HEMORRHAGE (~15% OF PLACENTAL SURFACE) AND UNREMARKABLE PLACENTAL MEMBRANES. Electronically Signed Lora Corona M.D. Gross Description The specimen is received fresh labeled placenta and is a 450 gram, 16.5 x 15.0 x 2.8 cm. placenta with attached membranes and umbilical cord. The attached membranes are thomas, translucent with focal opacities and insert marginally. The umbilical cord measures 17.5 cm. in length and averages 1.0 cm. in diameter. The cord inserts eccentrically, 4.5 cm. to the nearest margin. No true knots or strictures are identified. Cut surface of the umbilical cord reveals 3 vessels. The surface is barnhart-blue with minimal fibrin deposition and appropriate caliber vessels. The maternal surface is red-brown with focal defects. Sectioning reveals a 2.2 cm in greatest dimension hemorrhagic intraparenchymal lesion. The remaining placental parenchyma is red-brown and spongy. Pack Out Operator sections are submitted in 4 cassettes as follows: 1-membrane roll and umbilical cord; 2-lesion; 3-4-full thickness sections of placenta. 05/18/2018 [facility]05/18/2018
== END 2018-05-16 11:50 | disposition home or self-care (01) | DRG 540 ==
LOC: JDEL 05:25 → JLDR 06:05 → J3W 10:20
PROVIDERS: ADMIT Obstetrics & Gynecology; ATTEND Obstetrics & Gynecology
PROC: 10D00Z1 Extraction of Products of Conception, Low, Open Approach (ICD-10-PCS; principal; 2018-05-12)
DX: O48.0 Post-term pregnancy (principal); O34.211 Maternal care for low transverse scar from previous cesarean delivery; O69.81X0 Labor and delivery complicated by cord around neck, without compression, not applicable or unspecified; Z3A.40 40 weeks gestation of pregnancy; Z37.0 Single live birth
CPT/HCPCS: 36415; 36600; 80048; 82803; 85025; 85610; 85730; 86593; 86850; 86900; 86901; 88307-TC

== ENCOUNTER 2019-08-28 12:05 | Emergency (ER) | payer OTHER ==
[2019-08-28 12:24] VITALS: BP 120/57; PULSE 97; TEMP 98.4; BMI 24.4
[2019-08-28] MEDS ORDERED: ONDANSETRON *ODT* 4 MG TABLET SL ONE (12:38)
--- NOTE | 2019-08-28 12:40 | PDOC ---
History of Present Illness - General Chief Complaint: Vomiting/Diarrhea Stated Complaint: VOMITING Time Seen by Provider: 08/28/19 12:31 - History of Present Illness Initial Comments: 08/28/19 12:38 23-year-old female without comorbidities presents for evaluation of vomiting and diarrhea x2 days positive sick contact with same symptoms at home. Past History - Past Medical History Allergies/Adverse Reactions: Allergies Allergy/AdvReac Type Severity Reaction Status Date / Time No Known Allergies Allergy Verified 08/28/19 12:24 Home Medications: Ambulatory Orders Ferrous Sulfate [Feosol] 325 mg PO DAILY 05/12/18 Mv-Mn/Iron/FA/Herbal/Digestive [ One Tablet] 1 each PO DAILY 05/12/18 Acetaminophen [Tylenol .Regular Strength -] 500 mg PO Q4H PRN #30 tablet 05/15/18 Ferrous Sulfate [Feosol] 325 mg PO BID #60 tab 05/15/18 Ibuprofen [Motrin -] 600 mg PO Q4H PRN #30 tablet 05/15/18 Vitamins (Sjr) - 1 tab PO DAILY #30 tablet 05/15/18 Sennosides/Docusate Sodium [Pericolace -] 2 tablet PO HS PRN #60 tablet 05/15/18 Asthma: No Cancer: No Cardiac Disorders: No COPD: No Diabetes: No HTN: No Seizures: No Thyroid Disease: No - Reproductive History (#): 3 Para: 1 Therapeutic (s) & number: No Spontaneous : 1 - Immunization History Immunization Up to Date: Yes - Psycho Social/Smoking Cessation Hx Smoking Status: No Smoking History: Never smoked Have you smoked in the past 12 months: No Number of Cigarettes Smoked Daily: 0 Information on smoking cessation initiated: No Hx Alcohol Use: No Drug/Substance Use Hx: No Substance Use Type: None Hx Substance Use Treatment: No Review of Systems - Review of Systems Constitutional: No: Fever ABD/GI: Yes: Diarrhea, Nausea, Vomiting. No: Blood Streaked Bowels *Physical Exam - Vital Signs Last Vital Signs Temp Pulse Resp BP Pulse Ox 98.4 F 97 H 17 120/57 L 99 08/28/19 12:21 08/28/19 12:21 08/28/19 12:21 08/28/19 12:21 08/28/19 12:21 - Physical Exam 08/28/19 12:38 GENERAL: The patient is awake, alert, and fully oriented, in no acute distress. HEAD: Normal with no signs of trauma. EYES: sclera anicteric, conjunctiva clear. ENT: Ears normal tympanic membranes normal oropharynx clear uvula midline NECK: Normal range of motion LUNGS: Breath sounds equal, clear to auscultation bilaterally. No wheezes, and no crackles. HEART: S1 and S2 without murmur, rub or gallop. ABDOMEN: Soft, nontender, normoactive bowel sounds. No guarding, no rebound. No masses. EXTREMITIES: Normal range of motion, no edema. No clubbing or cyanosis. No cords, erythema, or tenderness. NEUROLOGICAL: Cranial nerves II through XII grossly intact. PSYCH: Normal mood, normal affect. SKIN: Warm, Dry, normal turgor, no rashes or lesions noted. Medical Decision Making - Medical Decision Making 08/28/19 12:39 Supportive care for viral gastroenteritis I have reviewed the pathophysiology with the patient. They are in agreement with the treatment plan all questions were answered to their satisfaction. Understanding for follow-up without fail was also conveyed to the patient. Again they are in agreement. Discharge - Discharge Information Problems reviewed: Yes Clinical Impression/Diagnosis: Viral gastroenteritis Condition: Stable Disposition: HOME - Admission No - Follow up/Referral Referrals: Carrie Terry MD [Staff Physician] - - Patient Discharge Instructions Additional Instructions: Return to the emergency room for worsening symptoms. Small sips of Pedialyte throughout the day to maintain hydration. Tylenol and Motrin as needed for fever and as directed. Without fail follow-up with your primary care physician in 1 to 2 days for further evaluation and treatment options. - Post Discharge Activity
[2019-08-28] MEDS ORDERED: ONDANSETRON *ODT* 4 MG TABLET ONE (13:05)
== END 2019-08-28 13:05 | disposition home or self-care (01) ==
LOC: JERFT 12:05
DX: A08.4 Viral intestinal infection, unspecified (principal)
CPT/HCPCS: 99283-25; Q0162

== ENCOUNTER 2019-09-21 16:21 | Emergency (ER) | payer SELFPAY ==
[2019-09-21 17:15] VITALS: BP 121/73; PULSE 73; TEMP 98.5; BMI 24.4
[2019-09-21] MEDS ORDERED: KETOROLAC TROMETHAMINE 60 MG/2 ML VIAL IM ONE (17:46)
[2019-09-21] MEDS ORDERED: KETOROLAC TROMETHAMINE 30 MG/1 ML VIAL ONE (17:47)
--- NOTE | 2019-09-21 18:16 | PDOC ---
History of Present Illness - General Chief Complaint: Pain Stated Complaint: CHEST TIGHTNESS Time Seen by Provider: 09/21/19 17:24 History Source: Patient Exam Limitations: No Limitations - History of Present Illness Initial Comments: 09/21/19 18:08 24-year-old female presents to ED with complaints of right upper chest pain to the right clavicular region. Patient denies shortness of breath, fever, chills, palpitation, nausea, dizziness, or weakness. Patient denies any recent change in activity or heavy lifting. Patient denies pulmonary disease or smoking history. Is this a multiple visit Asthma Patient?: No Timing/Duration: 24 hours Severity: mild Associated Symptoms: reports: chest pain Past History - Travel Traveled outside of the country in the last 30 days: No Close contact w/someone who was outside of country & ill: No - Past Medical History Allergies/Adverse Reactions: Allergies Allergy/AdvReac Type Severity Reaction Status Date / Time No Known Allergies Allergy Verified 09/21/19 17:16 Home Medications: Ambulatory Orders Ferrous Sulfate [Feosol] 325 mg PO DAILY 05/12/18 Mv-Mn/Iron/FA/Herbal/Digestive [ One Tablet] 1 each PO DAILY 05/12/18 Acetaminophen [Tylenol .Regular Strength -] 500 mg PO Q4H PRN #30 tablet 05/15/18 Ferrous Sulfate [Feosol] 325 mg PO BID #60 tab 05/15/18 Ibuprofen [Motrin -] 600 mg PO Q4H PRN #30 tablet 05/15/18 Vitamins (Sjr) - 1 tab PO DAILY #30 tablet 05/15/18 Sennosides/Docusate Sodium [Pericolace -] 2 tablet PO HS PRN #60 tablet 05/15/18 Asthma: No Cancer: No Cardiac Disorders: No COPD: No Diabetes: No HTN: No Seizures: No Thyroid Disease: No - Reproductive History (#): 3 Para: 1 Therapeutic (s) & number: No Spontaneous : 1 - Immunization History Immunization Up to Date: Yes - Psycho Social/Smoking Cessation Hx Smoking Status: No Smoking History: Never smoked Have you smoked in the past 12 months: No Number of Cigarettes Smoked Daily: 0 Hx Alcohol Use: No Drug/Substance Use Hx: No Substance Use Type: None Hx Substance Use Treatment: No Patient Lives Alone: No Lives with/in: parents Review of Systems - Review of Systems Able to Perform ROS?: Yes Constitutional: No: Symptoms Reported HEENTM: No: Symptoms Reported Respiratory: No: Symptoms reported Cardiac (ROS): Yes: Chest Pain ABD/GI: No: Symptoms Reported : No: Symptoms Reported Musculoskeletal: No: Symptoms Reported Integumentary: No: Symptoms Reported Neurological: No: Symptoms reported Hematologic/Lymphatic: No: Symptoms Reported *Physical Exam - Vital Signs Last Vital Signs Temp Pulse Resp BP Pulse Ox 98.5 F 73 18 121/73 100 09/21/19 17:10 09/21/19 17:10 09/21/19 17:10 09/21/19 17:10 09/21/19 17:10 - Physical Exam General Appearance: Yes: Nourished, Appropriately Dressed. No: Apparent Distress HEENT: positive: EOMI, JEAN CARLOS, TMs Normal, Pharynx Normal. negative: Pale Conjunctivae Neck: positive: Supple Respiratory/Chest: positive: Lungs Clear, Normal Breath Sounds. negative: Res piratory Distress, Accessory Muscle Use Cardiovascular: positive: Regular Rhythm, Regular Rate. negative: Murmur Gastrointestinal/Abdominal: positive: Soft. negative: Tenderness Musculoskeletal: positive: Normal Inspection Extremity: positive: Normal Inspection Integumentary: positive: Normal Color, Warm, Moist Neurologic: positive: Normal Mood/Affect, Motor Strength 5/5 (Ambulatory) Heart Score/ECG Review - ECG Intrepretation Rhythm: Regular Rhythm (Rate 61. Normal sinus rhythm. QTc 422 ms.) ED Treatment Course - RADIOLOGY Radiology Studies Ordered: Category Date Time Status CHEST X-RAY PORTABLE* [RAD] Stat Radiology 09/21/19 17:46 Completed - Medications Given in the ED: ED Medications Discontinued Medications Generic Name Dose Route Start Last Admin Trade Name Freq PRN Reason Stop Dose Admin Ketorolac Tromethamine 30 mg 09/21/19 17:46 09/21/19 17:47 Toradol Injection - IM 09/21/19 17:47 30 mg ONCE ONE Administration Medical Decision Making - Medical Decision Making 09/21/19 18:21 Chief complaint: Right-sided chest pain described as aching sensation worsened with movement for the past week without any other associated symptoms. Exam: Patient with no reproducible chest pain on exam lungs clear to auscultation vital signs stable EKG normal sinus rhythm. Plan: Patient added for chest x-ray which was essentially negative. Patient discharged home after receiving Toradol and recommend to continue Tylenol every 6- 8 hours Discharge - Discharge Information Problems reviewed: Yes Clinical Impression/Diagnosis: Right-sided chest pain Condition: Improved Disposition: HOME - Follow up/Referral Referrals: Patricia Ovalles MD [Primary Care Provider] - - Patient Discharge Instructions Patient Printed Discharge Instructions: DI for Costochondritis Additional Instructions: Take Tylenol 975 every 6-8 hours for adequate discomfort for the next 3 to 5 days - Post Discharge Activity
--- NOTE | 2019-09-23 14:45 | EKG ---
Test Reason : Blood Pressure : / mmHG Vent. Rate : 061 BPM Atrial Rate : 061 BPM P-R Int : 142 ms QRS Dur : 098 ms QT Int : 420 ms P-R-T Axes : 055 081 061 degrees QTc Int : 422 ms NORMAL SINUS RHYTHM WITH SINUS ARRHYTHMIA T WAVE ABNORMALITY, CONSIDER ANTERIOR ISCHEMIA ABNORMAL ECG WHEN COMPARED WITH ECG OF 24-OCT-2017 18:28, VENT. RATE HAS DECREASED BY 51 BPM T WAVE VARIATION Confirmed by CHANTELLE YOU MD ([id number]) on 09/23/2019 2:44:48 PM Referred By: Confirmed By:CHANTELLE YOU MD
== END 2019-09-21 18:20 | disposition home or self-care (01) ==
LOC: JERFT 16:21
DX: R07.89 Other chest pain (principal)
CPT/HCPCS: 71045-TC-FY; 93005; 93010; 99284-25

== ENCOUNTER 2023-10-20 00:07 | Emergency (ER) | payer OTHER ==
[2023-10-20 00:18] VITALS: BMI 25.2
[2023-10-20] MEDS ORDERED: ACETAMINOPHEN INJECTION 100 ML IVPB ONE (01:27)
[2023-10-20] MEDS ORDERED: ONDANSETRON 4 MG/2 ML VIAL ONE (01:28)
[2023-10-20] MEDS: ONDANSETRON 4 MG/2 ML VIAL IVPUSH ONE (02:04)
[2023-10-20] MEDS: ACETAMINOPHEN 1000 MG/100 ML BAG IVPB ONE (02:04)
[2023-10-20] MEDS: LACTATED RINGERS SOLUTION 1000 ML INFUS.BAG IV ONE (02:06)
[2023-10-20 02:08] LABS: BASO % 0.2 % (0-2.0); EOS % 0.8 % (0-4.5); HEMATOCRIT 37.9 % (32.4-45.2); HEMOGLOBIN 12.5 GM/dL (10.7-15.3); LYMPH % 15.5 % (8-40); MCHC 33.1 g/dl (32.0-36.0); MEAN CELL VOLUME 81.7 fl (80-96); MEAN PLT VOLUME 7.9 fl (7.5-11.1); MONO % 4.5 % (3.8-10.2); PLATELET COUNT 241 10^3/uL (134-434); RBC 4.63 M/mm3 (3.60-5.2); RDW 14.6 % (11.6-15.6); WHITE BLOOD COUNT 8.3 K/mm3 (4.0-10.0)
[2023-10-20 02:10] LABS: EPI CELLS >36 /uL (0-25.1); HYALINE CASTS 2 /uL (0-3.1); URINE APPEARANCE CLEAR; URINE BACTERIA 364 /uL (0-1359); URINE BILIRUBIN NEGATIVE (NEGATIVE); URINE COLOR DK YELLOW; URINE GLUCOSE (UA) NEGATIVE (NEGATIVE); URINE KETONE TRACE (NEGATIVE); URINE LEUK ESTERASE TRACE (NEGATIVE); URINE NITRITE NEGATIVE (NEGATIVE); URINE PROTEIN TRACE (NEGATIVE); URINE RBC 21 /uL (0-23.9); URINE WBC 7 /uL (0-25.8)
[2023-10-20] MEDS ORDERED: FAMOTIDINE 20 MG/50 ML IVPB 20 MG/50 ML MG IVPB ONE (02:11)
[2023-10-20] MEDS ORDERED: AZITHROMYCIN IVPB 500 MG/250 ML BAG IVPB ONE (02:18)
[2023-10-20 02:28] LABS: POTASSIUM 3.9 mmol/L (3.5-5.1)
[2023-10-20 02:30] LABS: CALCIUM 9.7 mg/dL (8.5-10.1)
[2023-10-20 02:31] LABS: ALBUMIN 4.4 g/dl (3.4-5.0); BLOOD UREA NITROGEN 12.5 mg/dL (7-18); MAGNESIUM 2.4 mg/dL (1.8-2.4)
[2023-10-20] MEDS: FAMOTIDINE 20 MG/50 ML IVPB 20 MG/50 ML MG IVPB ONE (02:31)
[2023-10-20 02:34] LABS: CREATININE 0.5 mg/dL (0.55-1.3)
[2023-10-20 02:35] LABS: TOT PROT 7.6 g/dl (6.4-8.2)
[2023-10-20] MEDS: AZITHROMYCIN IVPB 500 MG in DEXTROSE 5%-WATER - 250 ML IVPB ONE (02:35)
[2023-10-20 04:07] LABS: INR 1.22 (0.83-1.09); PROTHROMBIN TIME (PATIENT) 13.7 SEC (9.7-13.0)
[2023-10-20 04:10] LABS: ACTIVATED PTT 32.5 SECONDS (25.2-36.5)
[2023-10-20 04:56] VITALS: BP 103/62; PULSE 77; RESP 14; TEMP 97.9
== END 2023-10-20 04:56 | disposition home or self-care (01) ==
LOC: JER 00:07
PROC: 3E03329 Introduction of Other Anti-infective into Peripheral Vein, Percutaneous Approach (ICD-10-PCS; principal; 2023-10-20)
PROC: 3E03329 Introduction of Other Anti-infective into Peripheral Vein, Percutaneous Approach (ICD-10-PCS; 2023-10-20)
PROC: 3E030NZ Introduction of Analgesics, Hypnotics, Sedatives into Peripheral Vein, Open Approach (ICD-10-PCS; 2023-10-20)
PROC: 3E030GC Introduction of Other Therapeutic Substance into Peripheral Vein, Open Approach (ICD-10-PCS; 2023-10-20)
DX: R11.2 Nausea with vomiting, unspecified (principal); R19.7 Diarrhea, unspecified; R10.84 Generalized abdominal pain; M79.10 Myalgia, unspecified site; R42 Dizziness and giddiness; Z20.822 Contact with and (suspected) exposure to COVID-19
CPT/HCPCS: 0241U-QW; 36415; 71046-TC-FY; 80053; 81003; 83690; 83735; 84703; 85025; 85610; 85730; 93005; 93010; 99285-25; J0131